=== PATIENT | male | born 1975 | race Caucasian/White ===

== ENCOUNTER → 2016-08-24 | Outpatient (CLI) | payer MEDICARE ==
[~2016-08-24] MED LIST: DEPAKOTE500 MG PO; PAXIL 20MG20 MG PO; XANAX 0.5MG0.5 MG PO; ZYPREXA20 MG PO
== END ==
LOC: BHSO 15:38
DX: F31.73 Bipolar disorder, in partial remission, most recent episode manic (principal)

== ENCOUNTER 2016-11-15 12:50 | Emergency (ER) | payer MEDICARE ==
[~2016-11-15] VITALS: Ht 188 cm; Wt 93.2 kg
[2016-11-15 13:04] VITALS: BP 129/86; TEMP 99.1
[2016-11-15] MEDS ORDERED: PAXIL 20MG20 MG PO (13:07)
[2016-11-15] MEDS ORDERED: ZYPREXA20 MG PO (13:07)
[2016-11-15] MEDS ORDERED: XANAX 0.5MG0.5 MG PO (13:08)
[2016-11-15] MEDS ORDERED: DEPAKOTE500 MG PO (13:08)
[2016-11-15 15:15] VITALS: PULSE 80
== END 2016-11-15 15:17 | disposition home or self-care (01) ==
LOC: COL.ER 12:50
DX: F41.9 Anxiety disorder, unspecified (principal); F31.9 Bipolar disorder, unspecified; F99 Mental disorder, not otherwise specified; Z98.890 Other specified postprocedural states; F12.10 Cannabis abuse, uncomplicated
CPT/HCPCS: J2060

== ENCOUNTER → 2016-11-28 | Outpatient (CLI) | payer MEDICARE | LOC: BHSO 09:53 | DX: F31.12 Bipolar disorder, current episode manic without psychotic features, moderate (principal) ==

== ENCOUNTER → 2016-12-22 | Outpatient (CLI) | payer MEDICARE | LOC: BHSO 14:37 | DX: F31.73 Bipolar disorder, in partial remission, most recent episode manic (principal) ==

== ENCOUNTER → 2017-01-30 | Outpatient (CLI) | payer MEDICARE | LOC: BHSO 08:54 | DX: F31.31 Bipolar disorder, current episode depressed, mild (principal) ==

== ENCOUNTER → 2017-10-01 | Outpatient (CLI) | payer MEDICARE | LOC: BHSO 08:53 | DX: F31.81 Bipolar II disorder (principal) | CPT/HCPCS: G0463 ==